=== PATIENT | female | born 1970 | race African-American/Black ===

== ENCOUNTER 2019-01-14 12:57 | Outpatient (CLI) | payer MEDICARE, MEDICAID ==
--- NOTE | 2019-01-14 14:02 | MMO ---
Bilateral MAMMO Bilat Screen [facility]. CLINICAL HISTORY: Patient is 48 years old and is seen for screening. The patient has no family history of breast cancer. The patient has no personal history of cancer. VIEWS: The views performed were: bilateral craniocaudal with tomosynthesis and bilateral mediolateral oblique with tomosynthesis. FILMS COMPARED: The present examination has been compared to prior imaging studies performed at [facility] on 05/17/2014, 05/21/2015, 05/28/2016 and 06/01/2017. MAMMOGRAM FINDINGS: There are scattered fibroglandular densities. There are no suspicious masses, suspicious calcifications, or new areas of architectural distortion. IMPRESSION: THERE IS NO MAMMOGRAPHIC EVIDENCE OF MALIGNANCY. A ROUTINE FOLLOW-UP MAMMOGRAM IN 1 YEAR IS RECOMMENDED. THE RESULTS OF THIS EXAM WERE SENT TO THE PATIENT. ACR BI-RADS Category 1 - Negative MAMMOGRAPHY NOTE: 1. A negative mammogram report should not delay a biopsy if a dominant of clinically suspicious mass is present. 2. Approximately 10% to 15% of breast cancers are not detected by mammography. 3. Adenosis and dense breasts may obscure an underlying neoplasm.
== END 2019-01-14 12:58 | disposition home or self-care (01) ==
LOC: BICMAMMO 12:57
PROVIDERS: ATTEND Student in an Organized Health Care Education/Training Program
DX: Z12.31 Encounter for screening mammogram for malignant neoplasm of breast (principal)
CPT/HCPCS: 77063; 77067

== ENCOUNTER 2019-12-28 12:41 | Emergency (ER) | payer MEDICAID, MEDICARE ==
[2019-12-28] MEDS ORDERED: Dexamethasone 10 MG/ML VIAL ONE (14:22)
== END 2019-12-28 14:53 | disposition home or self-care (01) ==
LOC: ERS 12:41
DX: H57.89 Other specified disorders of eye and adnexa (principal); T78.40XA Allergy, unspecified, initial encounter; J45.909 Unspecified asthma, uncomplicated; E78.00 Pure hypercholesterolemia, unspecified; I10 Essential (primary) hypertension; E11.9 Type 2 diabetes mellitus without complications
CPT/HCPCS: 96372; 99283; J1100

== ENCOUNTER 2020-05-18 13:27 | Outpatient (CLI) | payer OTHER, MEDICAID ==
--- NOTE | 2020-05-18 14:55 | MMO ---
Bilateral MAMMO Bilat Screen [facility]. CLINICAL HISTORY: Patient is 50 years old and is seen for screening. The patient has no family history of breast cancer. The patient has no personal history of cancer. VIEWS: The views performed were: bilateral mediolateral oblique with tomosynthesis; bilateral craniocaudal with tomosynthesis; left mediolateral oblique; and right craniocaudal. FILMS COMPARED: The present examination has been compared to prior imaging studies performed at [facility] on 05/21/2015, 05/28/2016, 06/01/2017 and 01/14/2019. This study has been interpreted with the assistance of computer-aided detection. MAMMOGRAM FINDINGS: There are scattered fibroglandular densities. There are no suspicious masses, suspicious calcifications, or new areas of architectural distortion. IMPRESSION: THERE IS NO MAMMOGRAPHIC EVIDENCE OF MALIGNANCY. A ROUTINE FOLLOW-UP MAMMOGRAM IN 1 YEAR IS RECOMMENDED. THE RESULTS OF THIS EXAM WERE SENT TO THE PATIENT. ACR BI-RADS Category 1 - Negative MAMMOGRAPHY NOTE: 1. A negative mammogram report should not delay a biopsy if a dominant of clinically suspicious mass is present. 2. Approximately 10% to 15% of breast cancers are not detected by mammography. 3. Adenosis and dense breasts may obscure an underlying neoplasm. Reported by: DOMENICA CASANOVA MD Electonically Signed: [id number]
== END 2020-05-18 13:28 | disposition home or self-care (01) ==
LOC: BICMAMMO 13:27
PROVIDERS: ATTEND Family Medicine
DX: Z12.31 Encounter for screening mammogram for malignant neoplasm of breast (principal)
CPT/HCPCS: 77063; 77067

== ENCOUNTER 2021-05-22 11:20 | Outpatient (CLI) | payer OTHER, MEDICAID | END 2021-05-22 11:21 | disposition home or self-care (01) | LOC: BICMAMMO 11:20 | PROVIDERS: ATTEND Family Medicine | DX: Z12.31 Encounter for screening mammogram for malignant neoplasm of breast (principal) | CPT/HCPCS: 77063; 77067 ==

== ENCOUNTER 2022-05-23 09:49 | Outpatient (CLI) | payer OTHER, MEDICAID | END 2022-05-23 09:50 | disposition home or self-care (01) | LOC: BICMAMMO 09:49 | PROVIDERS: ATTEND Family Medicine | DX: Z12.31 Encounter for screening mammogram for malignant neoplasm of breast (principal) | CPT/HCPCS: 77063; 77067 ==

== ENCOUNTER 2024-01-21 08:47 | Outpatient (CLI) | payer OTHER | END 2024-01-21 08:48 | disposition home or self-care (01) | LOC: BICMAMMO 08:47 | PROVIDERS: ATTEND Family Medicine | DX: Z12.31 Encounter for screening mammogram for malignant neoplasm of breast (principal) | CPT/HCPCS: 77063; 77067 ==

== ENCOUNTER 2024-02-26 14:32 | Outpatient (CLI) | payer OTHER | END 2024-02-26 14:33 | disposition home or self-care (01) | LOC: RAD 14:32 | PROVIDERS: ATTEND Student in an Organized Health Care Education/Training Program | DX: M25.512 Pain in left shoulder (principal); M19.012 Primary osteoarthritis, left shoulder; M25.712 Osteophyte, left shoulder ==

== ENCOUNTER 2024-08-03 08:51 | Outpatient (CLI) | payer OTHER, MEDICARE | END 2024-08-03 08:52 | disposition home or self-care (01) | LOC: NM 08:51 | PROVIDERS: ATTEND Specialist | DX: T84.84XA Pain due to internal orthopedic prosthetic devices, implants and grafts, initial encounter (principal); M17.12 Unilateral primary osteoarthritis, left knee; Z96.653 Presence of artificial knee joint, bilateral | CPT/HCPCS: 78315; A9503 ==